=== PATIENT | female | born 1950 | race Caucasian/White ===

== ENCOUNTER 2017-12-21 06:38 | Emergency (ER) | payer MEDICARE, OTHER ==
[~2017-12-21] VITALS: Ht 157.5 cm; Wt 91.6 kg
[~2017-12-21 06:38] MED LIST: ACIPHEX 20 MG T20 MG PO; ASPIR 8181 MG PO; AUGMENTIN 875-1 EACH PO; BUMETANIDE 1 MG1 M1 PO; CO Q-10200 MG PO; CURCUMIN1 GM PO; DIFLUCAN150 MG PO; FISH OIL500 MG PO; FOLIC ACID1 MG PO; GLUCOPHAGE500 MG PO; GLUCOSAMINE1000 MG PO; LIPITOR20 MG PO; MAGNESIUM250 MG PO; MULTI VITAMIN1 EACH PO; POLICOSANOL-GA1 EACH PO; SORINE 80 MG TA80 M1 PO; TARKA PO; VITAMIN C1000 MG PO; VITAMIN E400 UNI2 PO
[2017-12-21] MEDS ORDERED: XARELTO20 MG PO (07:08)
[2017-12-21] MEDS ORDERED: VITAMIN D-32000 UNIT PO (07:08)
[2017-12-21] MEDS ORDERED: CELEXA20 MG PO (07:08)
[2017-12-21] MEDS ORDERED: PROTONIX40 M1 PO (07:08)
[2017-12-21] MEDS ORDERED: CLONAZEPAM 1 MG1 M1 PO (07:09)
[2017-12-21] MEDS ORDERED: NORCO 5-325 TA1 EACH PO (07:50)
[2017-12-21 08:15] VITALS: BP 132/65
== END 2017-12-21 08:16 | disposition home or self-care (01) ==
LOC: M.ERS 06:38
DX: S83.8X2A Sprain of other specified parts of left knee, initial encounter (principal); I48.91 Unspecified atrial fibrillation; E11.9 Type 2 diabetes mellitus without complications; Z90.49 Acquired absence of other specified parts of digestive tract; X50.1XXA Overexertion from prolonged static or awkward postures, initial encounter; Y93.89 Activity, other specified; Y92.89 Other specified places as the place of occurrence of the external cause; Y99.8 Other external cause status

== ENCOUNTER → 2017-12-25 | Outpatient (CLI) | payer MEDICARE, OTHER ==
[~2017-12-25] MED LIST changes: +CELEXA20 MG PO; +CLONAZEPAM 1 MG1 M1 PO; +NORCO 5-325 TA1 EACH PO; +PROTONIX40 M1 PO; +VITAMIN D-32000 UNIT PO; +XARELTO20 MG PO
== END ==
LOC: M.MRI 14:01
DX: S83.242A Other tear of medial meniscus, current injury, left knee, initial encounter (principal); S89.92XA Unspecified injury of left lower leg, initial encounter; M25.462 Effusion, left knee; M71.22 Synovial cyst of popliteal space [Baker], left knee; X58.XXXA Exposure to other specified factors, initial encounter; Y93.89 Activity, other specified; Y92.89 Other specified places as the place of occurrence of the external cause; Y99.8 Other external cause status

== ENCOUNTER → 2018-01-11 | Outpatient (CLI) | payer MEDICARE, OTHER ==
[2018-01-11 06:51] LABS: POTASSIUM 3.8 mmol/L (3.5-5.1)
== END ==
LOC: M.LAB 03:44
PROVIDERS: Anesthesiology
DX: Z01.812 Encounter for preprocedural laboratory examination (principal); E11.9 Type 2 diabetes mellitus without complications

== ENCOUNTER 2019-03-18 06:05 | Inpatient (IN) | payer MEDICARE, OTHER ==
[2019-03-06 08:54] LABS: ABSOLUTE BASOPHILS 0.1 thou/uL (0.0-0.2); ABSOLUTE EOSINOPHILS 0.2 thou/uL (0.0-0.7); ABSOLUTE LYMPHOCYTES 2.6 thou/uL (0.8-5.3); ABSOLUTE MONOCYTES 0.7 thou/uL (0.0-1.2); ABSOLUTE NEUTROPHILS 5.1 thou/uL (1.6-8.1); BASOPHILS 1.3 %; EOSINOPHILS 1.8 %; HEMATOCRIT 35.8 % (37.0-47.0); HEMOGLOBIN 11.8 gm/dL (12.0-15.0); LYMPHOCYTES 30.3 %; MCH 25.5 pg (26.0-34.0); MCHC 32.9 g/dL (28.0-37.0); MCV 77.5 fL (80.0-100.0); MPV 7.3 fl. (7.2-11.1); NUCLEATED RBCS 0 /100WBC; PLATELET COUNT* 385 thou/uL (150-400); POLYS 58.6 %; RBC 4.62 mil/uL (4.20-5.00); RDW-CV 15.6 % (10.5-14.5); WBC 8.6 thou/uL (4.0-11.0)
[2019-03-06 09:05] LABS: CALCIUM 8.9 mg/dL (8.5-10.1); CREATININE 1.2 mg/dL (0.6-1.3); POTASSIUM 4.1 mmol/L (3.5-5.1)
[2019-03-06 09:10] LABS: ALBUMIN 3.5 g/dL (3.4-5.0); TOTAL BILIRUBIN 0.4 mg/dL (<0.1-1.0); TOTAL PROTEIN 6.7 g/dL (6.4-8.2)
--- NOTE | 2019-03-06 18:05 | EKG ---
[place] [address] ELECTROCARDIOGRAM REPORT Name: NIRAV BEAL Room: [facility].#: [id number] Admission: Attend Phys: Romulo Malik DO Discharge: Date of : 46 Report #: [id number] THIS REPORT FOR: //name// [facility] Test Date: 2019-03-06 Test Time: 09:17:49 Pat Name: NIRAV BEAL Department: Room: Gender: F Senior Web Developer: : 1950 Requested By: Romulo Malik Order Number: [id number] Reading MD: Garcia Byrne Measurements Intervals [place] Rate: 92 P: MT: QRS: 11 QRSD: 89 T: 0 QT: 344 QTc: 426 Interpretive Statements Atrial fibrillation No previous ECG available for comparison Electronically Signed On 03-06-2019 18:05:42 CDT by Garcia Byrne [email or web address] <ELECTRONICALLY SIGNED> By: Yoan Byrne MD, [facility] 03/06/19 1805 0917 6 Yoan Byrne MD, FACC /EPI
[2019-03-07 02:06] LABS: GLYCOHEMOGLOBIN (HGB A1C) 6.3 % (4.8-5.6)
[~2019-03-18] VITALS: Ht 157.5 cm; Wt 92.5 kg
[~2019-03-18 06:05] MED LIST changes: +COREG6.25 MG PO; +FISH OIL 1,001000 M2 PO; -FISH OIL500 MG PO
[2019-03-18 06:42] VITALS: BP 129/81
--- NOTE | 2019-03-18 11:25 | OP ---
[address] [address] OPERATIVE REPORT Name: NIRAV BEAL Room: [address] .R.#: [id number] Admission: 03/18/19 Attend Phys: Ramesh Diallo Discharge: Date of : 46 Report #: [id number] THIS REPORT FOR: //name// CC: Romulo Jensen DATE OF SERVICE: 03/18/2019 PREOPERATIVE DIAGNOSIS: Right knee tricompartmental osteoarthritis, failing all conservative care measure. POSTOPERATIVE DIAGNOSIS: Right knee tricompartmental osteoarthritis, failing all conservative care measure. SURGERY PERFORMED: Scar cemented 3 component, right total knee arthroplasty femur 6, tibia E, 11 mm vitamin E polyethylene and 29 patella. SURGEON: Romulo Malik DO COMMUNITY CENTER WORKER: Andrew Majano DO SECOND SALES FINANCIAL ANALYST: Lucho Cisneros, ANESTHESIA: General anesthetic and an adductor block. ANTIBIOTICS: The patient did receive Ancef 2 grams IV piggyback preoperatively. SPECIMENS: She has no specimens. ESTIMATED BLOOD LOSS: 100 mL. COMPLICATIONS: No complications. GROSS FINDINGS: Prior to surgery, this patient's radiographs demonstrated with decrease in joint space and failed conservative care measures of the osteoarthritis that was tricompartmental in nature in her right knee. She had multiple osteophytes throughout the knee region, especially medially and patellofemorally. The patient demonstrated eburnated bone on the medial femoral condyle and the tibial plateau side, hypoplastic lateral femoral condyle was noted as well. Post placement of the right total knee arthroplasty had a very stable arc of motion in extension, mid flexion and flexion, well-tracking patella. SURGERY IN DETAIL: The patient was taken to the operating room and placed on table, given the benefit of general anesthetic, had a previous adductor nerve [facility] [address] [place] [address] OPERATIVE REPORT Name: NIRAV BEAL Room: [address] [place] [facility]#: [id number] Admission: 03/18/19 Attend Phys: Ramesh Diallo Discharge: Date of : 46 Report #: [id number] block applied by Anesthesia in the preop holding area. A well-padded tourniquet was placed high on the right thigh. She underwent a 10-minute Hibiclens scrub and chlorhexidine prep and sterile draping for right total knee arthroplasty surgery. Timeout was called and verified by everyone in the room prior to starting. It did not use a tourniquet until the cementing phase of the surgery. A midline incision was made with a #10 blade scalpel through skin and subcutaneous tissues followed with a second medial parapatellar capsular incision with a new knife blade. Hemostasis was maintained throughout the surgery. Patella everted, knee flexed 90 degrees. Excess osteophytes were removed. Distal femoral drill hole was made in routine fashion followed with placement of the distal femoral cutting block in place, cutting in the normal amount of bone resection. Once this was accomplished the distal cut and I had a nice butterfly to the distal end of the femur, I went down to the external guide on the ankle and to the proximal part of the tibia, secured that with cutting bone block in place, measuring off the high lateral side, resecting 10 mm of bone with the oscillating saw. Once this wafer of bone was removed, the extension block was placed in the knee quite stable through this extension and easily fit. All pins were now removed, went back and sized the femur to a #6. Appropriately, the drill holes were made 3-degree cut. The 4-in-1 cutting block was now next applied, secured in position and all cuts were made on the femur. All bone cut material was now removed. At this time, I went to the tibia side and size various trials on the tibial plateau area, it looks the best, fit the best and was secured in place with small screws. I now put the #[address] followed with a 10 mm trial spacer and put the leg through motion was quite stable. At this point in time, I elected to use a Scar reamer and the patella was appropriately sized to a 41, reamed and then the 29 mm button looked the best fit, so appropriately drill holes were made and it was drilled. At this stage, Esmarch the extremity, inflated the tourniquet to 300 mmHg, the trial patella was removed, I drilled the distal femoral holes and that femoral trial prosthesis was removed followed with the polyethylene trial, I did do the reamer and a cruciform cut to the tibia next and the tibia baseplate was removed. I did drill the medial side of the tibia due to the hard sclerotic bone. I did pulsatile lavage irrigation to this knee region, put a distal femoral bone piece back in the distal femoral drill hole to seal that off. Once this was all prepared for cement technique, I did a 1 stage cementing with Palacos cement and initiated placed the tibial component, all excess cement was removed, the femoral component was next placed, all excess cement was removed, I stretched her with 11 mm trial polyethylene and cemented the patellar button in place as well. The leg was held in extension until cement had hardened, I did a TXA solution to the knee, then released that tourniquet, hemostasis easily was maintained, I did pulsatile lavage irrigation the knee one more time. The trial component was removed from the baseplate of the tibia, that 11 component looked like it is actually even more stable than the 10, so I elected for the vitamin E polyethylene, it was seated in the tibia tray until the total audible click was noted. The leg was placed through motion again one last time, felt to be quite stable. Capsule was closed with #1 Ethibond and #1 Vicryl in [id number] [address] OPERATIVE REPORT Name: NIRAV BEAL JOE Room: [address] [place] [facility]#: [id number] Admission: 03/18/19 Attend Phys: Ramesh Diallo Discharge: Date of : 46 Report #: [id number] fashion, subcutaneous tissues with 2-0 Monocryl followed with a running V-Loc and Dermabond. A Mepilex dressing was applied. She was transferred off the table, taken to recovery in stable condition. I attest I was present for all critical aspects of surgery. Needle, instrument and sponge counts were correct. <ELECTRONICALLY SIGNED> By: Romulo Malik DO 03/18/19 1125 0913 [id number] Malik DO /nt
[2019-03-18 12:00] VITALS: BP 117/62
[2019-03-18 16:00] VITALS: BP 125/70
[2019-03-18 20:00] VITALS: BP 134/67
[2019-03-19 00:03] VITALS: BP 114/58
[2019-03-19 03:07] LABS: HEMATOCRIT 28.9 % (37.0-47.0); HEMOGLOBIN 9.4 gm/dL (12.0-15.0)
[2019-03-19 04:43] VITALS: BP 110/56
[2019-03-19 08:00] VITALS: BP 141/57
[2019-03-19 14:49] VITALS: BP 141/57
[2019-03-19] MEDS ORDERED: NORCO 5-325 TA1 EAC1 PO (14:59)
[2019-03-19 17:05] VITALS: BP 141/57
== END 2019-03-19 17:29 | disposition home health service (06) | DRG 470 ==
LOC: M.SUR 06:05 → M.TBA 09:22 → M.ORTHSURG 09:22 → M.SUR 09:45 → M.ORTHSURG 12:00
PROVIDERS: Orthopaedic Surgery; ADMIT Internal Medicine
PROC: 0SRC0J9 Replacement of Right Knee Joint with Synthetic Substitute, Cemented, Open Approach (ICD-10-PCS; principal; 2019-03-18)
DX: M17.11 Unilateral primary osteoarthritis, right knee (principal); R71.0 Precipitous drop in hematocrit; I48.91 Unspecified atrial fibrillation; I10 Essential (primary) hypertension; E11.9 Type 2 diabetes mellitus without complications; E78.5 Hyperlipidemia, unspecified; F32.9 Major depressive disorder, single episode, unspecified; K21.9 Gastro-esophageal reflux disease without esophagitis; Z86.73 Personal history of transient ischemic attack (TIA), and cerebral infarction without residual deficits; Z90.49 Acquired absence of other specified parts of digestive tract; Z88.5 Allergy status to narcotic agent

== ENCOUNTER 2019-09-03 22:34 | Emergency (ER) | payer MEDICARE, OTHER ==
[~2019-09-03] VITALS: Ht 152.4 cm; Wt 96.5 kg
[~2019-09-03 22:34] MED LIST changes: +NORCO 5-325 TA1 EAC1 PO
[2019-09-04] VITALS: BP 139/65
== END 2019-09-04 | disposition home or self-care (01) ==
LOC: M.ERS 22:34
DX: S52.131A Displaced fracture of neck of right radius, initial encounter for closed fracture (principal); S80.01XA Contusion of right knee, initial encounter; I48.91 Unspecified atrial fibrillation; E11.9 Type 2 diabetes mellitus without complications; Z90.49 Acquired absence of other specified parts of digestive tract; Z86.73 Personal history of transient ischemic attack (TIA), and cerebral infarction without residual deficits; Z79.899 Other long term (current) drug therapy; Z79.84 Long term (current) use of oral hypoglycemic drugs; W01.0XXA Fall on same level from slipping, tripping and stumbling without subsequent striking against object, initial encounter; Y93.01 Activity, walking, marching and hiking; Y92.89 Other specified places as the place of occurrence of the external cause; Y99.8 Other external cause status